=== PATIENT | male | born 1990 | race Caucasian/White ===

== ENCOUNTER 2017-06-29 05:30 | Emergency (ER) | payer SELFPAY ==
[~2017-06-29] VITALS: Ht 185.4 cm; Wt 95.5 kg
[2017-06-29 07:04] VITALS: BP 114/66
== END 2017-06-29 07:06 | disposition home or self-care (01) ==
LOC: ED 06:31
DX: S16.1XXA Strain of muscle, fascia and tendon at neck level, initial encounter (principal); S00.33XA Contusion of nose, initial encounter; R04.0 Epistaxis; V59.49XA Driver of pick-up truck or van injured in collision with other motor vehicles in traffic accident, initial encounter; Y93.89 Activity, other specified; Y92.488 Other paved roadways as the place of occurrence of the external cause; Y99.8 Other external cause status
CPT/HCPCS: 70450; 72125; 99284